=== PATIENT | female | born 1980 | race Caucasian/White ===

== ENCOUNTER 2020-03-15 15:35 | Outpatient (REF) | payer OTHER, SELFPAY ==
--- NOTE | 2020-03-15 13:30 | PAPFT_PTH ---
PATIENT: Linsey Guevara LOC: [facility] U#:[id number] AGE/SX: 39/F ROOM: RE03/15/[address]: Rajwinder Aguilar APRN : 1980 BED: DIS: 03/15/2020 SPEC #: [id number] RECD: 03/16/20 12:57 STATUS: MAE REMackenzie #: [id number] FÉLIX: 03/15/20 13:[address]: Rajwinder Aguilar DEPT: [facility] Cytology RECD BY: Destiny Tierney Tissues: 1 - CX/ENDOCX FOR PAP SMEARS Procedures: PAP THIN PREP/UVM Screening HPV DNA PROBE Comments: [id number]
== END 2020-03-15 15:36 | disposition home or self-care (01) ==
LOC: LBN 15:35
DX: Z12.4 Encounter for screening for malignant neoplasm of cervix (principal); Z11.51 Encounter for screening for human papillomavirus (HPV)
CPT/HCPCS: 88142; 87624

== ENCOUNTER 2020-04-05 02:09 | Outpatient (CLI) | payer OTHER, SELFPAY ==
--- NOTE | 2020-04-05 16:17 | DI.MAMMO_ITS ---
EXAM: MAMMO SCREENING CLINICAL HISTORY: screening,Z12.39 TECHNIQUE: Mammograms were interpreted according to the usual protocol including computer analysis w [employer] CAD system, tomosynthesis and C-view imaging. COMPARISON: Baseline examination. FINDINGS: The breasts are composed of mainly fatty density , Breast Density category A. No suspicious masses or suspicious microcalcifications are seen. No skin thickening or abnormal axillary lymph nodes are seen. There has been no significant change from prior exams. IMPRESSION: BI-RADS Category 1, Negative mammogram Yearly screening mammography is recommended. Breast Density - Category A, fatty density. A negative radiographic report should not delay biopsy if a dominant or clinically suspicious mass is present. Up to ten percent of cancers are not identified on mammography. A negative report may reinforce clinical impression. Adenosis and dense breasts may obscure an underlying neoplasm. False positive reports average 6 to 10%. Patient will receive a letter notifying them of these results.
== END 2020-04-05 02:10 ==
LOC: DI 02:09
DX: Z12.31 Encounter for screening mammogram for malignant neoplasm of breast (principal)
CPT/HCPCS: 77063; 77067

== ENCOUNTER 2020-04-05 03:23 | Outpatient (CLI) | payer OTHER, SELFPAY ==
[2020-04-05 16:42] LABS: Lithium < 0.2 mmol/l (0.6-1.2)
[2020-04-05 16:54] LABS: ALT 56 U/L (14-59); AST 26 U/L (15-37); Alkaline Phosphatase 110 U/L (46-116); Anion Gap 10.1 mmol/L (3-11); BUN 11 mg/dL (7-18); Bilirubin, Total 0.4 mg/dL (0.2-1.0); CO2 25.9 mmol/L (21.0-32.0); CREATININE 0.7 mg/dL (0.55-1.02); Calcium 9.3 mg/dL (8.5-10.1); Calculated LDL 94 mg/dL (<100); Chloride 105 mmol/L (98-107); Cholesterol 163 mg/dL (<200); Glucose 83 mg/dL (74-106); HDL Cholesterol 52 mg/dL (40-60); Potassium 4.3 mmol/L (3.5-5.1); Sodium 141 mmol/L (136-145); TSH (W/Ref FT4) 1.51 uIU/mL (0.36-3.74); Total Protein 6.9 g/dL (6.4-8.2); Triglyceride 85 mg/dL (<150)
== END 2020-04-05 03:24 | disposition home or self-care (01) ==
LOC: LBO 03:23
DX: Z00.00 Encounter for general adult medical examination without abnormal findings (principal); G47.00 Insomnia, unspecified; F39 Unspecified mood [affective] disorder; Z51.81 Encounter for therapeutic drug level monitoring; R53.83 Other fatigue; E66.3 Overweight; Z13.220 Encounter for screening for lipoid disorders
CPT/HCPCS: 36415; 80053; 80061; 80178; 84443

== ENCOUNTER 2020-05-23 03:23 | Outpatient (CLI) | payer OTHER, SELFPAY ==
[2020-05-23 11:40] LABS: Lithium < 0.2 mmol/l (0.6-1.2)
== END 2020-05-23 03:24 | disposition home or self-care (01) ==
LOC: LBO 03:24
DX: F39 Unspecified mood [affective] disorder (principal); Z51.81 Encounter for therapeutic drug level monitoring
CPT/HCPCS: 36415; 80178

== ENCOUNTER 2020-05-31 14:00 | Outpatient (REF) | payer OTHER, SELFPAY ==
[2020-05-31 15:01] LABS: Abs Immature Grans 0.03 10^3/uL (0.0-0.06); Absolute Basophil Count 0.05 10^3/uL (0.0-0.2); Absolute Eosinophil Count 0.23 10^3/uL (0.0-0.7); Absolute Monocyte Count 0.79 10^3/uL (0.1-0.8); Absolute Neutrophil Count 6.32 10^3/uL (1.2-6.7); Basophils % 0.5; Eosinophils % 2.5; HCT 43.8 % (36.0-46.0); HGB 14.3 g/dL (11.2-15.7); Immature Grans % 0.3; Lymphocytes % 20.4; MCHC 32.6 % (32.0-36.0); MCV 85.9 fL (80-95); MPV 10.4 fL (8.0-11.0); Monocytes % 8.5; Neutrophils % 67.8; Nucleated RBC 0 %; Platelet Count 315 10^3/uL (130-400); RDW 12.5 % (11.7-14.6); WBC 9.32 10^3/uL (4.4-10.8)
[2020-05-31 15:12] LABS: ALT 43 U/L (14-59); AST 20 U/L (15-37); Albumin 4.3 g/dL (3.4-5.0); Alkaline Phosphatase 121 U/L (46-116); Anion Gap 10.7 mmol/L (3-11); BUN 15 mg/dL (7-18); Bilirubin, Total 0.4 mg/dL (0.2-1.0); CO2 26.3 mmol/L (21.0-32.0); CREATININE 0.7 mg/dL (0.55-1.02); Calcium 9.3 mg/dL (8.5-10.1); Chloride 105 mmol/L (98-107); Glucose 85 mg/dL (74-106); Potassium 4.4 mmol/L (3.5-5.1); Sodium 142 mmol/L (136-145); Total Protein 7.3 g/dL (6.4-8.2)
== END 2020-05-31 14:01 | disposition home or self-care (01) ==
LOC: LBN 14:00
DX: R10.9 Unspecified abdominal pain (principal)
CPT/HCPCS: 80053; 85025

== ENCOUNTER 2020-08-15 02:15 | Outpatient (CLI) | payer OTHER, SELFPAY ==
[2020-08-15 11:06] LABS: Source Nasal/Nares
[2020-08-15 13:31] LABS: COVID-19 PCR Negative (Negative)
== END 2020-08-15 02:16 | disposition home or self-care (01) ==
LOC: LBO 02:15
PROVIDERS: Visit Provider Surgery
DX: Z20.822 Contact with and (suspected) exposure to COVID-19 (principal); Z01.818 Encounter for other preprocedural examination
CPT/HCPCS: 87635

== ENCOUNTER 2020-08-17 06:13 | Day surgery (SDC) | payer OTHER, SELFPAY ==
--- NOTE | 2020-08-16 22:18 | PDOC.DSDIS_ITS ---
Discharge Plan Disposition Patient Disposition: HOME Condition: Good Discharge Details Reason For Visit: stomach scope Attending Provider: Addis Dupree Primary Care Provider: Rajwinder Aguilar Home Meds and New Rx's Prescriptions: New pantoprazole [Protonix] 40 mg tablet,delayed release (DR/EC) 40 mg PO BID Qty: 60 RF: 12 Continued lamotrigine 200 mg tablet 200 mg PO BID Qty: 90 RF: 3 trazodone 50 mg tablet 50 mg PO QHS PRN (Reason: sleep) Qty: 90 RF: 3 Discontinued pantoprazole [Protonix] 40 mg tablet,delayed release (DR/EC) 40 mg PO DAILY Qty: 30 RF: 12 Discharge Instructions Additional Instructions: DSU EGD Post-Op Instructions Instructions for Everyone who is given Anesthesia: For your safety, please do the following for the next twenty-four (24) hours: *Do Not operate a motor vehicle (car, truck, motorcycle, etc.) *Do Not drink alcoholic beverages or use any recreational drugs for the first 24 hours or while taking pain medications. The medications in your body may have a reaction that can be dangerous. *Do Not make any important decisions or sign any important papers. Findings: Reflux esophatitis -reactive Airway Dx -Sleep Apnea & reflux Follow up: You need to have f/u DZaynab Aguilar- you need to have a sleep study done! You also have moderate reactive airway dx and need to be started on an inhaler regimen. You should consider having Ph probe study done at [facility] to evaluate for nighttime reflux and aspiration. 1. No lifting over 20 pounds or strenuous activity for the first 24 hours after your procedure. After 24 hours there are no restrictions on your activity but you may feel fatigued for a few days. 2. After you arrive home you may have a light meal and return to your normal diet as you can tolerate it without feeling sick to your stomach. 3. You may have a sore throat for the next 24-48hrs. Gargle w/ salt water (1tsp salt in 4oz warm water) 5-6 times a day. Call the office at [phone] (Office) or [phone] (Hospital) right away if you notice any of the following: a.Vomiting of blood or ?coffee ground stools?. b.Rectal bleeding 1Tbsp, blood clots or continuous bleeding. c.Severe belly (abdominal) pain. d.A hard distended belly (abdomen) and an inability to pass gas. 4. Please don?t expect to have a normal BM (bowel movement) for 2-3 days after your procedure. 5. If there are questions regarding the findings of your procedure, please contact your doctor 6. If you are unable to contact your doctor with a problem, contact the hospital at [phone]. 7. Continue all your regular medications unless directed otherwise. I understand the above instructions and have no questions. Signature of Patient or Adult Escort Name of Responsible Adult Escort Signature of Nurse Date/Time Activity:: see above Diet:: see above Discharge Orders Discharge Orders: Discharge Order (Routine); Ordered 08/16/20 Ordered By: Addis Dupree DS: Diagnosis Discharge Diagnosis (1) GERD (gastroesophageal reflux disease): Status: Chronic (2) Abdominal pain: Status: Acute (3) History of tobacco use: Status: Acute (4) Cholecystectomy: Status: None (5) Mild persistent reactive airway disease with acute exacerbation: Status: Acute (6) Sleep apnea, obstructive: Status: Chronic
--- NOTE | 2020-08-16 22:19 | ENDO_ITS ---
Date of service: 08/17/20 Time of Service: 07:30 Endoscopy Report DATE OF PROCEDURE: 08/17/20 PRE-OP DIAGNOSIS: GERD/esophagtisi POST-OP DIAGNOSIS: same SURGEON: Addis Dupree ANESTHESIA TYPE: General:No Airway ESTIMATED BLOOD LOSS: 1 PATHOLOGY: other COMPLICATIONS: None DISPOSITION: same day PROCEDURE DESCRIPTION: After informed consent was obtained the patient was take to the procedure room and placed in a supine position. Monitors were applied and a time out was done. The patients name, date of , procedure type, allergies to medications and metal in their body was reviewed. A bite block was placed and the patient was sedated. Once sedated and comfortable the gastroscope was advanced through the oropharynx which was grossly normal into the esophagus. The Patient has very reactive airway. She did not tolerate the procedure/sedation well. As I am inserting the scope, I can see that she is refluxing material from her stomach into distal and mid portions of the esophagus. The proximal and mid-esophagus were nl. In the distal esophagus there was esophagitis -mild. She had some mild erosions noted at the esophagus. She had appears to be developing a Schatzki's ring and has a very minute sliding-type hiatal hernia. There are no diverticula or strictures. The scope was advanced into the stomach and through the pylorus into the 3rd portion of the duodenum. The duodenum was noted to be nl. Biopsies were done -all specimens are retrieved and no bleeding is noted. The scope was retracted back into the stomach and biopsies were done to rule out H. pylori. There were no ulcers/duodenitis. The scope was retroflexed. The cardia and fundus were noted to be normal. The scope was retracted back into the esophagus and biopsies were done of the GE junction to rule out Mckeon's. The Z line was irregular. Pt had persistent coughing throughout the procedure. Pt also exhibited signs of sleep apea as well, as reactive airway Dx & NICKOLAS w/ her anesthetic. There is a high possibility that she is refluxing/aspirating during nighttime. The scope was removed and the patient was woken up and taken back to [facility] in stable condition.
[2020-08-17 06:23] VITALS: BP 124/65; PULSE 69; RESP 18; TEMP 36.2; O2SAT 96
[2020-08-17] MEDS: Lactated Ringers 1,000 ML 80 ML IV (06:45)
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
[2020-08-17 07:12] VITALS: BMI 39.4
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
--- NOTE | 2020-08-17 08:00 | BOWEL_PTH ---
PATIENT: Linsey Guevara LOC: [facility] U#:[id number] AGE/SX: 39/F ROOM: RE08/17/[address]: Addis Dupree : 1980 BED: DIS: 08/17/2020 SPEC #: [id number] RECD: 08/17/20 09:57 STATUS: MAE RE #: [id number] FÉLIX: 08/17/20 08:[address]: Addis Dupree DEPT: Surgical Specimen RECD BY: Maryam Davis ENTERED: 08/17/20 10:01 SP TYPE: Bowel OTHR DR: Rajwinder Aguilar APRN Tissues: 1 - BIOPSY BOWEL 2 - BIOPSY BOWEL 3 - STOMACH BIOPSY 4 - STOMACH BIOPSY 5 - ESOPHAGUS BIOPSY 6 - ESOPHAGUS BIOPSY Procedures: GROSS AND MICRO LEVEL 4 Comments: [id number]
[2020-08-17 08:20] VITALS: BP 132/56; PULSE 99; RESP 22; TEMP 36.1; O2SAT 96
--- NOTE | 2020-08-17 08:20 | W.ANESPOSTOP ---
Postoperative Evaluation Date, Time and Location Date Performed: 08/17/20 Time Performed: 08:22 Patient Location: Day Surgery Unit Vital Signs Most Recent Imported Vital Signs: Most Recent Vital Signs Temp Pulse Resp BP Pulse Ox 36.2 C L 69 18 124/65 96 08/17/20 06:23 08/17/20 06:23 08/17/20 06:23 08/17/20 06:23 08/17/20 06:23 Most Recent Manually Entered Vital Signs: Adult Blood Pressure: 132/56 Heart Rate: 99 Respirations: 20 Oxygen Saturation (%): 97 Temperature (C): 36.1 C Pain Score (0-10 Scale): 0 Pain Score Most Recent Pain Score: Most Recent Pain Score Pain Level 4 0 08/17/20 06:23 Assessment Mental Status: Awake (Alert & Oriented to Patient Baseline) Airway and Respiratory Function: Patent airway with normal (patient baseline) respiratory exam and Abnormal Respiratory exam (See explanation) (Coughing) Cardiovascular Function: Hemodynamically Stable Hydration Status: Adequately Hydrated Nausea & Vomiting: No Nausea or Vomiting Pain: Pt. Denies Any Pain Peripheral Nerve Block: Patient did not receive a nerve block
[2020-08-17 08:26] VITALS: BP 132/56; PULSE 99; RESP 20; TEMPC 36.1; O2SAT 97
[2020-08-17] MEDS: Albuterol 2.5 MG/3 ML INH SOLN VIAL UPD (08:35)
[2020-08-17 08:36] VITALS: PULSE 89; RESP 18; RESP 5; O2SAT 99
[2020-08-17 08:52] VITALS: BP 111/56; PULSE 87; RESP 18; TEMP 36.5; O2SAT 96
== END 2020-08-17 09:30 | disposition home or self-care (01) ==
PROVIDERS: Visit Provider Surgery
PROC: 0DJ68ZZ Inspection of Stomach, Via Natural or Artificial Opening Endoscopic (ICD-10-PCS; CPT 43235; principal; 2020-08-17 07:30)
DX: K22.2 Esophageal obstruction (principal); K21.00 Gastro-esophageal reflux disease with esophagitis, without bleeding
CPT/HCPCS: 43239; 81025; 88305; 94640; J2704; J7613

== ENCOUNTER 2020-10-03 03:08 | Outpatient (CLI) | payer OTHER, SELFPAY ==
[2020-10-03] MEDS: Albuterol HFA 18 GM 200 PUFF INH IH (08:43)
[2020-10-03] MEDS: Inhaler, Assist Device 1 EACH MC (08:43)
--- NOTE | 2020-10-03 14:36 | W.PFT ---
Date of service: 10/03/20 Time of Service: 08:07 Pulmonary Function Test Result Requesting Provider Rajwinder Aguilar Interpretation Spirometry: There is no airflow limitation. There is a significant bronchodilator response (13% and 360cc increase in FEV1). Impression Normal spirometry with a positive bronchodilator response. Clinical Correlation therefore is recommended.
== END 2020-10-03 03:09 | disposition home or self-care (01) ==
LOC: RT 03:08
DX: J45.30 Mild persistent asthma, uncomplicated (principal)
CPT/HCPCS: 94060

== ENCOUNTER 2021-05-30 13:27 | Outpatient (REF) | payer OTHER, SELFPAY ==
--- NOTE | 2021-05-30 13:00 | PAPFT_PTH ---
PATIENT: Linsey Guevara LOC: [facility] U#:[id number] AGE/SX: 40/F ROOM: RE05/30/[address]: Woo Dumont NP : 1980 BED: DIS: 05/30/2021 SPEC #: [id number] RECD: 05/30/21 17:28 STATUS: MAE WILLIAM #: [id number] FÉLIX: 05/30/21 13:[address]: Woo Dumont DEPT: [facility] Cytology RECD BY: Destiny Tierney Tissues: 1 - CX/ENDOCX FOR PAP SMEARS Procedures: PAP THIN PREP/UVM Screening HPV DNA PROBE Comments: [id number]
== END 2021-05-30 13:28 | disposition home or self-care (01) ==
LOC: LBN 13:27
PROVIDERS: PCP Nurse Practitioner Family; Visit Provider Nurse Practitioner Family
DX: Z12.4 Encounter for screening for malignant neoplasm of cervix (principal); Z11.51 Encounter for screening for human papillomavirus (HPV)
CPT/HCPCS: 88142; 87624

== ENCOUNTER → 2021-06-13 02:48 | Outpatient (CLI) | payer OTHER, SELFPAY ==
--- NOTE | 2021-06-13 07:45 | DI.MAMMO_ITS ---
Exam(s) MAMMO SCREENING EXAM: MAMMO SCREENING CLINICAL HISTORY: screening,z12.39 TECHNIQUE: Mammograms were interpreted according to the usual protocol including computer analysis w [email or web address] CAD system, tomosynthesis and C-view imaging. COMPARISON: FINDINGS: The breasts are of moderate density with fairly symmetrical distribution of fibroglandular tissue. N o dominant mass or clumped microcalcification is identified in either breast. The current examinatio n is compared with the previous examination of March 2020 and there has been no gross interval stacia nge in appearance in comparison with the prior study. IMPRESSION: No specific evidence of malignancy at this time. Routine screening examinations are suggested at yea rly intervals in this age group according to the ACR guidelines. BI-RADS Category 1 - Negative Breast Density - Category B - Scattered areas of fibroglandular density
== END ==
PROVIDERS: PCP Nurse Practitioner Family; Visit Provider Nurse Practitioner Family
DX: Z12.31 Encounter for screening mammogram for malignant neoplasm of breast (principal)
CPT/HCPCS: 77063; 77067

== ENCOUNTER 2021-07-04 09:19 | Outpatient (CLI) | payer OTHER, SELFPAY ==
--- NOTE | 2021-07-04 09:15 | RT.EKG_ITS ---
APPROVED REPORT Exam: Resting ECG Reason for Exam: baseline Patient Location: O HR:61 bpm ECG Measurements Heart Rate 61 AXIS IA 170 P 42 QRSd 95 QRS 56 QT 398 T 33 QTc 403 Conclusion Sinus rhythm...normal P axis, V-rate 60- 99 Normal Electrocardiogram
== END 2021-07-04 09:20 | disposition home or self-care (01) ==
LOC: DI.CM 09:21
PROVIDERS: PCP Nurse Practitioner Family; Visit Provider Nurse Practitioner Family
DX: Z13.6 Encounter for screening for cardiovascular disorders (principal)
CPT/HCPCS: 93010

== ENCOUNTER 2021-08-02 12:05 | Outpatient (CLI) | payer OTHER, SELFPAY ==
--- NOTE | 2021-08-02 12:21 | DI.RAD_ITS ---
Exam(s) XR SHOULDER RT COMPLETE 2+V EXAM: XR SHOULDER RT COMPLETE 2+V CLINICAL HISTORY: recent fall, pain in rt shoulder-M25.511. TECHNIQUE: 2D digital imaging was performed of the right shoulder. Five images were obtained. AP, Grashey, Y-view and axillary views were obtained. COMPARISON: No exams were available for comparison FINDINGS: BONES: No acute fracture is present. No bony destructive lesion is seen. JOINTS: No dislocation present. There are degenerative changes seen at both the glenohumeral and acro mioclavicular joints. SOFT TISSUE: Normal. IMPRESSION: No acute fracture or dislocation. DATA REPOSITORY: RADIATION DOSE DELIVERED:
== END 2021-08-02 12:25 ==
LOC: DI 12:07
PROVIDERS: PCP Nurse Practitioner Family; Visit Provider Family Medicine
DX: M25.511 Pain in right shoulder (principal); Z91.81 History of falling
CPT/HCPCS: 73030

== ENCOUNTER 2021-11-05 15:52 | Outpatient (CLI) | payer OTHER, SELFPAY ==
[2021-11-05 14:56] LABS: ESR 8 mm/hr (0-20)
[2021-11-05 14:57] LABS: Abs Immature Grans 0.01 10^3/uL (0.0-0.06); Absolute Basophil Count 0.04 10^3/uL (0.0-0.2); Absolute Eosinophil Count 0.66 10^3/uL (0.0-0.7); Absolute Lymphocyte Count 1.28 10^3/uL (1.2-3.4); Absolute Monocyte Count 1.05 10^3/uL (0.1-0.8); Absolute Neutrophil Count 3.11 10^3/uL (1.2-6.7); Basophils % 0.7; Eosinophils % 10.7; HCT 42.1 % (36.0-46.0); HGB 13.8 g/dL (11.2-15.7); Immature Grans % 0.2; Lymphocytes % 20.8; MCH 27.6 pg (27.0-33.0); MCHC 32.8 % (32.0-36.0); MCV 84 fL (80-95); MPV 9.8 fL (8.0-11.0); Monocytes % 17.1; Neutrophils % 50.5; Platelet Count 272 10^3/uL (130-400); RDW-SD 40.1 fL; WBC 6.15 10^3/uL (4.4-10.8)
[2021-11-05 15:07] LABS: Hemoglobin A1C 5.5 % (<5.7)
[2021-11-05 15:25] LABS: ALT 35 U/L (14-59); AST 17 U/L (15-37); Albumin 4.4 g/dL (3.4-5.0); Alkaline Phosphatase 92 U/L (46-116); Anion Gap 7.7 mmol/L (3-11); BUN 19 mg/dL (7-18); Bilirubin, Total 0.3 mg/dL (0.2-1.0); C-Reactive Protein 1.35 mg/dL (0.0-0.3); CO2 28.3 mmol/L (21.0-32.0); CREATININE 0.7 mg/dL (0.55-1.02); Calcium 9.2 mg/dL (8.5-10.1); Chloride 106 mmol/L (98-107); Estimated GFR 110.67 (mL/min/1.73m2); Glucose 90 mg/dL (74-106); Potassium 3.9 mmol/L (3.5-5.1); Sodium 142 mmol/L (136-145); Total Protein 7.5 g/dL (6.4-8.2)
[2021-11-05 16:10] LABS: Calculated LDL 81 mg/dL (<100); Cholesterol 158 mg/dL (<200); HDL Cholesterol 63 mg/dL (40-60); Triglyceride 71 mg/dL (<150)
== END 2021-11-05 15:53 | disposition home or self-care (01) ==
LOC: LBO 15:55
PROVIDERS: PCP Nurse Practitioner Family; Visit Provider Family Medicine
DX: R73.01 Impaired fasting glucose (principal); H46.8 Other optic neuritis; F41.8 Other specified anxiety disorders; R53.83 Other fatigue; Z13.1 Encounter for screening for diabetes mellitus; Z13.6 Encounter for screening for cardiovascular disorders; Z00.00 Encounter for general adult medical examination without abnormal findings
CPT/HCPCS: 36415; 80053; 80061; 85652; 83036; 85025; 86140

== ENCOUNTER 2021-11-08 00:41 | Outpatient (CLI) | payer OTHER, SELFPAY ==
--- NOTE | 2021-11-08 06:45 | DI.MRI_ITS ---
Exam(s) MR BRAIN ORBIT FACE NECK WO/W EXAM: MR BRAIN ORBIT FACE NECK WO/W CLINICAL HISTORY: left optic neuritis,h46.9 TECHNIQUE: Multiplanar multisequence MRI of the brain was performed. Post contrast imaging was also obtained, with T1 weighted axial and coronal imaging and multi planar T1 MP rage imaging. COMPARISON: No exams were available for comparison FINDINGS: The ventricular system is normal in appearance. There are multiple areas of abnormal signal, predominantly in periventricular white matter but also i n subcortical white matter. The most prominent focus of abnormal signal lies adjacent to the frontal horn of the right lateral ventricle . On high-resolution T2 weighted images, there is suggestion increased signal in the left optic nerve i n its posterior extent. Question slight increased signal also present in the portion of the left opt ic nerve directly adjacent to the globe . Following contrast administration, there is question of minimal enhancement in left frontal white mat ter corresponding to a focus of abnormal signal seen FLAIR imaging. There is also a probable area of increased signal on post contrast imaging in the posterior intra orbital portion of the left optic n erve. Diffusion weighted imaging shows no evidence of infarction. Susceptibility weighted imaging shows no evidence of intracranial hemorrhage. There is normal flow void in the bill moore's slough of [place] vasculature. There is no evidence of a mass lesion or enhancing lesion in the brain. IMPRESSION: White matter signal abnormalities as described above including suggestion of small right frontal enha ncing lesion. Findings are also present suggesting abnormal signal and enhancement of the left optic nerve, in the posterior portion of the intra orbital portion of nerve. The findings as described ar e suspicious for demyelinating process, please correlate clinically.. DATA REPOSITORY:
[2021-11-08] MEDS: Gadoterate meglumine 20 ML SYRINGE IVP (08:46)
[2021-11-08] MEDS: Normal Saline Flush 10 ML SYR IVP (08:47)
== END 2021-11-08 01:01 ==
LOC: DI 00:41
PROVIDERS: PCP Nurse Practitioner Family; Visit Provider Family Medicine
DX: H46.9 Unspecified optic neuritis (principal)
CPT/HCPCS: 70553; 70543

== ENCOUNTER 2021-11-11 03:07 | Outpatient (RCR) | payer OTHER, SELFPAY ==
[2021-11-09] MEDS: Normal Saline Flush 10 ML SYR IVP (10:42)
[2021-11-10] MEDS: Normal Saline Flush 10 ML SYR IVP (10:41)
[2021-11-11] MEDS: Normal Saline Flush 10 ML SYR IVP (10:47)
== END 2021-12-09 23:59 | disposition home or self-care (01) ==
LOC: INF 03:07
PROVIDERS: PCP Nurse Practitioner Family; Visit Provider Family Medicine
DX: H46.9 Unspecified optic neuritis (principal)
CPT/HCPCS: 96365; J2930

== ENCOUNTER 2021-12-10 02:41 | Outpatient (CLI) | payer OTHER, SELFPAY ==
[2021-12-10] MEDS: Gadoterate meglumine 20 ML SYRINGE IVP (09:10)
[2021-12-10] MEDS: Normal Saline Flush 10 ML SYR IVP (09:11)
--- NOTE | 2021-12-10 09:40 | DI.MRI_ITS ---
Exam(s) MR THORACIC SPINE WO/W EXAM: MR THORACIC SPINE WO/W CLINICAL HISTORY: ?MS,LT OPTIC NEURITIS,H46.9 TECHNIQUE: Multiplanar multisequence MRI of the thoracic spine was performed without with intravenou s contrast. Contrast injected was 20 mL Dotarem. COMPARISON: No exams were available for comparison FINDINGS: OSSEOUS: There are no acute appearing thoracic vertebral fractures. No listhesis. There is a small b enign intraosseous hemangioma noted in the left side of the L1 vertebral body. There are no lytic os seous lesions evident. THORACIC SPINAL CORD: There is no abnormal signal in the cervical spinal cord and no evidence of foca l cord atrophy nor focal cord swelling. There is no evidence of syringomyelia nor significant spinal cord dysraphism. There is no evidence of mass at the conus medullaris. The position of the conus me dullaris is at T12-L1 level. POSTCONTRAST: No abnormal enhancement within the cord, thecal sac, nor epidural space. No abnormal i ntraosseous enhancement. SIGNIFICANT INDIVIDUAL LEVEL FINDINGS: T6-7: There is a small posterolateral left disc protrusion which indents the thecal sac. Central can al dimensions are lower normal. No significant foraminal stenosis. T7-8: Slightly larger posterolateral left disc protrusion which indents the thecal sac and contacts t he spinal cord. Canal dimensions lower normal. No foraminal stenosis on either side at this level. T8-9: Mild annular bulging. No prominent disc herniation. Central canal dimensions within normal li mits. No foraminal stenosis. PARASPINAL TISSUES: No significant masses nor fluid collections evident. IMPRESSION: 1. No evidence of fracture, listhesis, nor ominous osseous lesions. A small benign hemangioma is not ed in the left side of L1 vertebral body. 2. No abnormal signal in the thoracic spinal cord. No evidence of demyelinating plaque in the cord. No syringomyelia. No dysraphism. No mass at the level of the conus nor elsewhere in the thoracic s aminata cord. 3. Small posterolateral left disc protrusions at T6-7 and T7-8, slightly larger at T7-8 level. DATA REPOSITORY:
--- NOTE | 2021-12-10 09:40 | DI.MRI_ITS ---
Exam(s) MR CERVICAL SPINE WO/W EXAM: MR CERVICAL SPINE WO/W CLINICAL HISTORY: ?MS TECHNIQUE: Multiplanar multisequence MRI of the cervical spine was performed without and with intrav enous contrast. Contrast infused was 20 mL Dotarem COMPARISON: MR MR BRAIN ORBIT FACE NECK WO/W from 11/08/2021 FINDINGS: CERVICOMEDULLARY JUNCTION: Intact with no evidence of cerebellar tonsillar ectopia. No obvious abnor mality of the odontoid process. No evidence of Chiari 1 malformation. CERVICAL SPINAL CORD: There is no abnormal signal in the cervical spinal cord and no evidence of foca l cord atrophy nor focal cord swelling. Is no abnormal enhancement within the cervical spinal cord. There is no evidence of syringomyelia. OSSEOUS:There are no cervical fractures evident. No significant osseous lesions in the cervical vert ebrae. The normal cervical curvature is maintained. INDIVIDUAL LEVELS: C2-3: No disc herniation nor central canal stenosis. No foraminal stenosis. No facet arthropathy. C3-4: There is a small posterolateral right disc protrusion which extends posteriorly 2 millimeters a nd is approximately 6 millimeters wide.No facet arthropathy. No foraminal stenosis. C4-5: No disc herniation nor central canal stenosis.No facet arthropathy. No foraminal stenosis C5-6: Normal disc height and signal. No disc herniation or canal stenosis. No foraminal stenosis. No facet arthropathy. C6-7: Normal disc height and signal. No disc herniation. No canal stenosis. No foraminal stenosis. No facet arthropathy. C7-T1: No disc herniation nor central canal stenosis. No facet arthropathy.No foraminal stenosis. IMPRESSION: 1. There is no evidence of demyelinating disease in the cervical spinal cord. No abnormal signal in the cord nor abnormal cervical spinal cord enhancement. 2. There is a small posterolateral right disc protrusion at C3-4 level, as described above. 3. There is no significant facet arthropathy in the cervical spinal column. DATA REPOSITORY:
== END 2021-12-10 03:01 ==
LOC: DI 02:41
PROVIDERS: PCP Nurse Practitioner Family; Visit Provider Psychiatry & Neurology Neurology
DX: D18.09 Hemangioma of other sites; M51.24 Other intervertebral disc displacement, thoracic region; H46.8 Other optic neuritis
CPT/HCPCS: 72156; 72157

== ENCOUNTER 2021-12-10 03:56 | Outpatient (CLI) | payer OTHER, SELFPAY ==
[2021-12-10 11:06] LABS: Folate 12.5 ng/mL (8.6-20.0); Vitamin B12 475 pg/mL (193-986)
[2021-12-10 13:46] LABS: Vitamin D 25 Total 18.5 ng/mL (30-100)
[2021-12-10 20:44] LABS: HBs Antibody, Qual Negative (See Note); HBs Antibody, Quant <3.1 mIU/mL (See Note); Hepatitis B Core Antibody Negative (Negative); Hepatitis B surface Ag Negative (Negative); Hepatitis C Ab w Rflx HCV PCR Negative (Negative)
[2021-12-10 20:50] LABS: HIV-1/2 Ag & Ab Screen Negative (Negative)
[2021-12-11 09:33] LABS: IgA 132 mg/dL (85-499); IgG 400 mg/dL (610-1,616); IgM 88 mg/dL (35-242)
[2021-12-11 11:15] LABS: Lyme Ab w Rflx to Lyme Confirm Negative (Negative); Varicella IgG Antibody Positive (See Note)
[2021-12-11 14:09] LABS: Albumin 64.6 % (55.8-66.1); Albumin g/dL 3.7 g/dL (3.6-5.2); Total Protein 5.8 g/dL (6.3-8.2)
[2021-12-11 15:17] LABS: ANA Interpretation Negative (Negative)
[2021-12-11 15:18] LABS: CD19 19 % (6-24); CD20 19 % (6-24)
[2021-12-13 01:04] LABS: Anaplasma phagocytophilum Negative (Negative); B. miyamotoi PCR Negative (Negative); Babesia divergens/MO-1 Negative (Negative); Babesia duncani Negative (Negative); Babesia microti Negative (Negative); Ehrlichia chaffeensis Negative (Negative); Ehrlichia ewingii/canis Negative (Negative); Ehrlichia muris eauclairensis Negative (Negative)
[2021-12-13 15:00] LABS: MOG FACS, S Negative (Negative)
[2021-12-14 23:38] LABS: NMO/AQP4 IgG FACS Negative (Negative)
== END 2021-12-10 03:57 | disposition home or self-care (01) ==
LOC: LBO 03:56
PROVIDERS: PCP Nurse Practitioner Family; Visit Provider Psychiatry & Neurology Neurology
DX: G35 Multiple sclerosis (principal); H46.9 Unspecified optic neuritis; G62.9 Polyneuropathy, unspecified
CPT/HCPCS: 36415; 82306; 82784; 86255; 86704; 86706; 86787; 86803; 87340; 87389; 87798; 88184; 88185; 82607; 82746; 84165; 86038; 86618

== ENCOUNTER 2022-04-17 16:25 | Emergency (ER) | payer OTHER, SELFPAY ==
[2022-04-17 16:36] VITALS: BP 119/84; PULSE 82; RESP 18; TEMP 37.3; O2SAT 97
[2022-04-17 18:59] VITALS: RESP 19
[2022-04-17 19:32] LABS: Abs Immature Grans 0.03 10^3/uL (0.0-0.06); Absolute Basophil Count 0.08 10^3/uL (0.0-0.2); Absolute Eosinophil Count 0.39 10^3/uL (0.0-0.7); Absolute Lymphocyte Count 2.87 10^3/uL (1.2-3.4); Absolute Monocyte Count 1.22 10^3/uL (0.1-0.8); Absolute Neutrophil Count 8.57 10^3/uL (1.2-6.7); Basophils % 0.6; HCT 42.8 % (36.0-46.0); HGB 14.5 g/dL (11.2-15.7); Immature Grans % 0.2; Lymphocytes % 21.8; MCH 28.4 pg (27.0-33.0); MCHC 33.9 % (32.0-36.0); MCV 84 fL (80-95); MPV 10.1 fL (8.0-11.0); Monocytes % 9.3; Neutrophils % 65.1; Platelet Count 343 10^3/uL (130-400); RDW 13.1 % (11.7-14.6); RDW-SD 39.3 fL; WBC 13.16 10^3/uL (4.4-10.8)
[2022-04-17 19:35] LABS: Bilirubin Negative (Negative); Blood Negative (Negative); Clarity Clear (Clear); Glucose Negative (Negative); Ketones Negative (Negative); Leukocyte Esterase Negative (Negative); Nitrite Negative (Negative); Specific Gravity >= 1.030 (1.005-1.025); Urobilinogen 0.2 mg/dL (Up to 0.2); pH 5.5 (5-8)
[2022-04-17 19:48] LABS: ALT 50 U/L (14-59); AST 16 U/L (15-37); Albumin 4.1 g/dL (3.4-5.0); Alkaline Phosphatase 103 U/L (46-116); Anion Gap 10.9 mmol/L (3-11); BUN 13 mg/dL (7-18); Bilirubin, Total 0.2 mg/dL (0.2-1.0); CO2 25.1 mmol/L (21.0-32.0); CREATININE 0.7 mg/dL (0.55-1.02); Calcium 9.4 mg/dL (8.5-10.1); Chloride 107 mmol/L (98-107); Estimated GFR 109.98 (mL/min/1.73m2); Glucose 94 mg/dL (74-106); Magnesium 1.9 mg/dL (1.8-2.4); Potassium 4.2 mmol/L (3.5-5.1); Sodium 143 mmol/L (136-145); Total Protein 6.9 g/dL (6.4-8.2)
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
[2022-04-17 21:57] VITALS: BP 129/66; PULSE 87; RESP 16; TEMP 37.3; O2SAT 96
== END 2022-04-17 22:10 | disposition home or self-care (01) ==
PROVIDERS: Emergency Provider Nurse Practitioner Family; PCP Nurse Practitioner Family
DX: R20.2 Paresthesia of skin (principal); H46.8 Other optic neuritis; D72.829 Elevated white blood cell count, unspecified
CPT/HCPCS: 80053; 81025; 96365; 99284; 81003; 83735; 85025; J2930

== ENCOUNTER 2022-04-21 01:58 | Outpatient (CLI) | payer OTHER, SELFPAY ==
--- NOTE | 2022-04-21 07:30 | DI.MRI_ITS ---
Exam(s) MR THORACIC SPINE WO/W EXAM: MR THORACIC SPINE WO/W CLINICAL HISTORY: ? MS, bilat paresthesias,r20.2. TECHNIQUE: Multiplanar multisequence MRI of the Thoracic spine was performed. Precontrast images performed 21 April 2022. Postcontrast images performed 22 April 2022 due to length of the exam. CONTRAST MATERIAL: IV Contrast: 20 mL of Dotarem contrast administered. COMPARISON: MR MR THORACIC SPINE WO/W from 12/10/2021 FINDINGS: Bones: The vertebral body heights are well maintained. Alignment is satisfactory. The signal characte ristics are unremarkable. Small hemangioma L1. Cord: The thoracic cord is normal size and signal intensity. No intrinsic cord lesion is present. Discs: Stable small left paracentral disc protrusions at T6-7 and T7-8. Stable mild annular bulging a t T8-9. No central canal stenosis or neural foraminal narrowing. Soft tissues: Normal. There is no evidence of suspicious enhancement. IMPRESSION: Stable mild degenerative disc changes mid thoracic level. Normal cord signal. DATA REPOSITORY:
--- NOTE | 2022-04-21 07:30 | DI.MRI_ITS ---
Exam(s) MR BRAIN WO/W EXAM: MR BRAIN WO/W CLINICAL HISTORY: ? MS,bilat paresthesias, r20.2. TECHNIQUE: Multiplanar multisequence MRI of the brain was performed. The exam was performed over 2 days due to length of study. CONTRAST MATERIAL: IV Contrast: 20 ML of Dotarem contrast administered. COMPARISON: MR MR BRAIN ORBIT FACE NECK WO/W from 11/08/2021 FINDINGS: VENTRICLES AND EXTRA AXIAL SPACES: Normal in size and morphology for the patient's age. HEMORRHAGE: None. CEREBRAL PARENCHYMA: New focus of abnormal high signal in the left posterior frontal lobe measuring 9 millimeters in greatest dimension. No associated enhancement. New 4 millimeter lesion seen in the left parietal lobe posterior to the level of the lateral ventricle. This lesion does show enhancemen t. Previously noted enhancing lesion in the right frontal lobe no longer identified. No space-occup ambrosio lesion identified. MIDLINE SHIFT: None. BRAINSTEM/CEREBELLUM: New lesion seen left cerebellar peduncle, roughly 4 millimeters with no associa stefani enhancement. CALVARIUM: Normal. VISUALIZED PARANASAL SINUSES/MASTOIDS: Clear. OTHER FINDINGS: None. IMPRESSION: Three new lesions identified, including a 4 millimeter left parietal lesion with enhancement. DATA REPOSITORY:
--- NOTE | 2022-04-21 07:30 | DI.MRI_ITS ---
Exam(s) MR CERVICAL SPINE WO/W EXAM: MR CERVICAL SPINE WO/W CLINICAL HISTORY: ? MS,paresthesia bilat legs,r20.2 TECHNIQUE: Multiplanar multisequence MRI of the cervical spine was performed without intravenous con trast. April 21 2022 Pre and post contrast T1 axial and sagittal sequences were performed. 20 mL Dotarem. The contrast e nhanced images were performed the following day, 22 April 2022, due to long length of scan. COMPARISON: MR MR CERVICAL SPINE WO/W from 12/10/2021 FINDINGS: Exam is somewhat limited by motion. BONES: Vertebral body heights are maintained. Alignment is normal. Bone marrow signal intensity is wi thin normal limits. CERVICAL CORD: Craniovertebral junction is unremarkable. There is abnormal high signal on T2 and STI R images within the upper cervical cord posterior to the C2 level measuring roughly 2 cm in length. The lesion is eccentric toward the right and is slightly expansile. There is no associated enhanceme nt. SOFT TISSUES: Unremarkable. C2-3: No disc herniation or bulge is identified. No evidence of neural foraminal narrowing. No signi ficant central canal stenosis C3-4: Stable small right paracentral disc protrusion. No evidence of neural foraminal narrowing. No significant central canal stenosis C4-5: Small small endplate osteophytes projecting toward the right. No evidence of neural foraminal narrowing. No significant central canal stenosis C5-6: No disc herniation or bulge is identified. No evidence of neural foraminal narrowing. No signif icant central canal stenosis C6-7: No disc herniation or bulge is identified. No evidence of neural foraminal narrowing. No signif icant central canal stenosis C7-T1: No disc herniation or bulge is identified. No evidence of neural foraminal narrowing. No signi ficant central canal stenosis IMPRESSION: New area of abnormal high signal in the cervical cord at the C2 level without associated enhancement. Findings consistent with MS. DATA REPOSITORY:
[2022-04-22] MEDS: Normal Saline Flush 10 ML SYR IVP (11:41)
[2022-04-22] MEDS: Gadoterate meglumine 20 ML VIAL IVP (11:42)
== END 2022-04-21 02:18 ==
PROVIDERS: PCP Nurse Practitioner Family; Visit Provider Nurse Practitioner Family
DX: R20.2 Paresthesia of skin (principal)
CPT/HCPCS: 70553; 72156; 72157

== ENCOUNTER 2022-04-28 03:38 | Outpatient (RCR) | payer OTHER, SELFPAY ==
[2022-04-24] MEDS: Normal Saline Flush 10 ML SYR IVP (07:54)
[2022-04-25] MEDS: Normal Saline Flush 10 ML SYR IVP (07:46)
[2022-04-25 13:43] LABS: IgA 141 mg/dL (85-499); IgG 466 mg/dL (610-1616); IgM 109 mg/dL (35-242)
[2022-04-26] MEDS: Normal Saline Flush 10 ML SYR IVP (09:16)
[2022-04-27] MEDS: Normal Saline Flush 10 ML SYR IVP (09:23)
[2022-04-28] MEDS: Normal Saline Flush 10 ML SYR IVP (08:12)
== END 2022-05-09 23:59 | disposition home or self-care (01) ==
LOC: INF 03:38
PROVIDERS: PCP Nurse Practitioner Family; Visit Provider Psychiatry & Neurology Neurology
DX: G35 Multiple sclerosis (principal)
CPT/HCPCS: 36415; 82784; 96365; 82787; J2930

== ENCOUNTER 2022-05-30 01:13 | Outpatient (RCR) | payer OTHER, SELFPAY ==
[2022-05-26] MEDS: Normal Saline Flush 10 ML SYR IVP (08:16)
[2022-05-27] MEDS: Normal Saline Flush 10 ML SYR IVP (08:05)
[2022-05-28] MEDS: Normal Saline Flush 10 ML SYR IVP (08:01)
[2022-05-29] MEDS: Normal Saline Flush 10 ML SYR IVP (08:13)
[2022-05-30] MEDS: Normal Saline Flush 10 ML SYR IVP (07:33)
== END 2022-06-08 23:59 | disposition home or self-care (01) ==
LOC: INF 01:13
PROVIDERS: PCP Nurse Practitioner Family; Visit Provider Psychiatry & Neurology Neurology
DX: G35 Multiple sclerosis (principal)
CPT/HCPCS: 96365; J2930

== ENCOUNTER 2022-08-13 02:17 | Outpatient (RCR) | payer OTHER, SELFPAY ==
[2022-08-10] MEDS: Normal Saline Flush 10 ML SYR IVP (18:48)
--- NOTE | 2022-08-10 19:07 | NUR.NOTE ---
Nursing Note: Pt arrived for scheduled IV infusion. Pt advised that she has pre-medications for potential reaction. Pt states she received this medication before and does not need to premedicate. IV started and infusion administered and completed without complications.
[2022-08-13] MEDS: Normal Saline Flush 10 ML SYR IVP (07:58)
== END 2022-09-08 23:59 | disposition home or self-care (01) ==
LOC: INF 02:17
PROVIDERS: PCP Nurse Practitioner Family; Visit Provider Nurse Practitioner Acute Care
DX: G35 Multiple sclerosis (principal)
CPT/HCPCS: 96365; J2930

== ENCOUNTER → 2023-04-28 03:19 | Outpatient (CLI) | payer OTHER, SELFPAY ==
--- NOTE | 2023-04-28 | DI.MRI_ITS ---
Exam(s) MR BRAIN WO/W EXAM: MR BRAIN WO/W CLINICAL HISTORY: Multiple sclerosis, G35 TECHNIQUE: Multiplanar multisequence MRI of the brain was performed. Both noninfused and contrast i nfused sequences were performed. IV Contrast injected was 19 cc Dotarem. COMPARISON: MR MR BRAIN WO/W from 04/21/2022 FINDINGS: CEREBRAL PARENCHYMA: The previously described foci of white matter signal abnormality are stable with the exception of dec reased in size of the lesion in the superior left side of the corpus callosum and absence of enhancem ent in this lesion (as was present on the April 2022 MRI). The largest plaque is again noted to be i n the left frontoparietal white matter region and has slightly decreased in size. There are no new f oci of white matter signal abnormality. No abnormal focal enhancement in the brain nor abnormal meni ngeal enhancement. Incidentally noted is abnormal signal in the visualized upper cervical spinal cord and cervicomedulla ry junction partially included on the lower most aspect of the field of view of the sagittal T2 weigh stefani images. DWI: No areas of restricted diffusion to suggest acute ischemic event. SWI: No microhemorrhages evident. PITUITARY GLAND: No mass nor parasellar abnormality. No obvious abnormality in the cavernous sinuses. FLOW VOIDS: The expected flow void are noted. No evidence of obvious aneurysm nor obvious vascular ma lformation. PARANASAL SINUSES: The visualized paranasal sinuses appear unremarkable. ORBITS: No obvious abnormal findings. IMPRESSION: 1. No new intracranial plaques. The previously described small enhancing plaque in the left parietal lobe region just above the corpus callosum has decreased in size and no longer exhibits enhancement. 2. There presently no enhancing lesions in the brain. 3. Abnormal signal noted in the cervical spinal cord DATA REPOSITORY:
[2023-04-28] MEDS: Normal Saline Flush 10 ML SYR IVP (07:35)
[2023-04-28] MEDS: Gadoterate meglumine 20 ML SYRINGE 19 ML IVP (07:36)
== END ==
PROVIDERS: PCP Nurse Practitioner Family; Visit Provider Psychiatry & Neurology Neurology
DX: G35 Multiple sclerosis (principal)
CPT/HCPCS: 70553

== ENCOUNTER 2023-06-17 05:09 | Outpatient (CLI) | payer OTHER, SELFPAY ==
[2023-06-17 08:08] LABS: Hemoglobin A1C 5.5 % (<5.7)
[2023-06-17 08:16] LABS: ALT 30 U/L (14-59); AST 12 U/L (15-37); Albumin 3.9 g/dL (3.4-5.0); Alkaline Phosphatase 96 U/L (46-116); Anion Gap 11.5 mmol/L (3-11); BUN 14 mg/dL (7-18); Bilirubin, Total 0.3 mg/dL (0.2-1.0); CO2 24.5 mmol/L (21.0-32.0); CREATININE 0.7 mg/dL (0.55-1.02); Calcium 8.9 mg/dL (8.5-10.1); Calculated LDL 97 mg/dL (<100); Chloride 111 mmol/L (98-107); Cholesterol 171 mg/dL (<200); Glucose 106 mg/dL (74-106); HDL Cholesterol 66 mg/dL (40-60); Potassium 3.9 mmol/L (3.5-5.1); Sodium 147 mmol/L (136-145); Total Protein 6.5 g/dL (6.4-8.2); Triglyceride 43 mg/dL (<150)
== END 2023-06-17 05:10 | disposition home or self-care (01) ==
PROVIDERS: PCP Nurse Practitioner Family; Visit Provider Nurse Practitioner Family
DX: Z79.1 Long term (current) use of non-steroidal anti-inflammatories (NSAID) (principal); Z13.220 Encounter for screening for lipoid disorders; Z13.1 Encounter for screening for diabetes mellitus
CPT/HCPCS: 36415; 80053; 80061; 83036

== ENCOUNTER → 2023-09-09 01:03 | Outpatient (CLI) | payer OTHER, SELFPAY ==
--- NOTE | 2023-09-09 08:00 | DI.MRI_ITS ---
Exam(s) MR LUMBAR SPINE WO EXAM: MR LUMBAR SPINE WO CLINICAL HISTORY: bilateral sciatica symptoms, claudication, low back pain, I73.9, M54.30,. TECHNIQUE: Multiplanar multisequence MRI of the Lumbar spine was performed. COMPARISON: CR XR SHOULDER RT COMPLETE 2+V from 08/02/2021 MR MR THORACIC SPINE WO/W from 12/10/2021 FINDINGS: Bones: The last intervertebral disc space is designated the L5/S1 level for the numbering purpose of this ex amination. The vertebral body heights are well maintained. Alignment: Unremarkable. The marrow signal characteristics are unremarkable. Hemangioma L1. Cord: The conus tip ends at the T12 level. It is of normal size and signal intensity. T12-L1: No focal disc herniation is present. No central spinal canal stenosis.No neural foraminal st enosis. L1-2: No focal disc herniation is present. No central spinal canal stenosis.No neural foraminal sten osis. L2-3: No focal disc herniation is present. No central spinal canal stenosis.No neural foraminal lindy nosis. L3-4: No focal disc herniation is present. No central spinal canal stenosis.No neural foraminal lindy nosis. L4-5: Partial disc desiccation. Minimal disc bulging. Small central annular tear. Mild facet deg enerative changes. No central spinal canal stenosis.No neural foraminal stenosis. L5-S1: No focal disc herniation is present. No central spinal canal stenosis.No neural foraminal st enosis. The visualized SI joints and sacrum are unremarkable. Soft tissues: The paraspinal soft tissues are unremarkable. IMPRESSION: Small central annular tear of the L4-5 disc and minimal overall disc bulging. No evidence of signifi cant spinal stenosis or neuroforaminal narrowing. DATA REPOSITORY:
== END ==
PROVIDERS: PCP Nurse Practitioner Family; Visit Provider Psychiatry & Neurology Neurology
DX: I73.9 Peripheral vascular disease, unspecified (principal); M54.30 Sciatica, unspecified side; M54.50 Low back pain, unspecified; M51.A4 Intervertebral annulus fibrosus defect, small, lumbosacral region
CPT/HCPCS: 72148

== ENCOUNTER 2023-09-22 02:23 | Outpatient (RCR) | payer OTHER, SELFPAY ==
[2023-09-22] VITALS (8 sets, daily range): BP systolic 108–136; BP diastolic 61–84; PULSE 52–77; RESP 16–18; TEMP 36.3–36.5; O2SAT 95–98
[2023-09-22] MEDS: Acetaminophen 325 MG TAB 650 MG PO (08:26)
[2023-09-22] MEDS: Normal Saline Flush 10 ML SYR IVP (08:26)
[2023-09-22] MEDS: methylPREDNISolone SUCC 125 MG VIAL IVP (08:42)
[2023-09-22] MEDS: diphenhydrAMINE 50 MG/ML VIAL IVP (08:42)
[2023-09-22 08:58] LABS: Abs Immature Grans 0.03 10^3/uL (0.0-0.06); Absolute Basophil Count 0.06 10^3/uL (0.0-0.2); Absolute Eosinophil Count 0.39 10^3/uL (0.0-0.7); Absolute Lymphocyte Count 1.07 10^3/uL (1.2-3.4); Absolute Monocyte Count 0.69 10^3/uL (0.1-0.8); Absolute Neutrophil Count 4.79 10^3/uL (1.2-6.7); Basophils % 0.9 %; Eosinophils % 5.5 %; HCT 46.1 % (36.0-46.0); HGB 15.3 g/dL (11.2-15.7); Immature Grans % 0.4 %; Lymphocytes % 15.2 %; MCH 28.2 pg (27.0-33.0); MCHC 33.2 % (32.0-36.0); MCV 85 fL (80-95); MPV 10.4 fL (8.0-11.0); Monocytes % 9.8 %; Neutrophils % 68.2 %; Platelet Count 279 10^3/uL (130-400); RBC 5.42 10^6/uL (3.93-5.22); RDW 13.1 % (11.7-14.6); RDW-SD 40.5 fL; WBC 7.03 10^3/uL (4.4-10.8)
[2023-09-22] MEDS: OCRELIZUMAB 600 MG in Normal Saline 500 ML 40 MG IVPB (09:12)
[2023-09-22 09:35] LABS: ALT 29 U/L (14-59); AST 12 U/L (15-37); Albumin 4.1 g/dL (3.4-5.0); Alkaline Phosphatase 101 U/L (46-116); Anion Gap 11.6 mmol/L (3-11); BUN 17 mg/dL (7-18); CO2 22.4 mmol/L (21.0-32.0); CREATININE 0.7 mg/dL (0.55-1.02); Calcium 9.2 mg/dL (8.5-10.1); Chloride 110 mmol/L (98-107); Glucose 96 mg/dL (74-106); Sodium 144 mmol/L (136-145); Total Protein 7.2 g/dL (6.4-8.2)
[2023-09-23 09:51] LABS: IgA 115 mg/dL (85-499); IgG 405 mg/dL (610-1616); IgM 49 mg/dL (35-242)
[2023-09-23 13:50] LABS: CD19 <1 % (6-24); CD20 <1 % (6-24)
== END 2023-10-10 23:59 | disposition home or self-care (01) ==
LOC: INF 02:23
PROVIDERS: PCP Nurse Practitioner Family; Visit Provider Psychiatry & Neurology Neurology
DX: G35 Multiple sclerosis (principal)
CPT/HCPCS: 36415; 80053; 82784; 88184; 88185; 96365; 96366; 96374; 96375; 85025; J1200; J2350; J2919

== ENCOUNTER 2023-12-02 07:33 | Outpatient (CLI) | payer OTHER, SELFPAY ==
[2023-12-02 07:38] VITALS: BP 137/78; PULSE 55; RESP 20; TEMP 36.5; O2SAT 99
[2023-12-02 08:08] VITALS: O2SAT 95
[2023-12-02 08:10] VITALS: PULSE 64; RESP 14; O2SAT 97
[2023-12-02 08:12] VITALS: BP 123/64; PULSE 55; PULSE 56; RESP 15; O2SAT 97
[2023-12-02 08:16] VITALS: BP 122/91; PULSE 51; PULSE 59; RESP 17; O2SAT 97
[2023-12-02] MEDS: Omnipaque 240 MG/ML 50 ML BTL IJ (08:20)
--- NOTE | 2023-12-02 08:20 | PDOC.PAIN ---
Date of service: 12/02/23 Time of Service: 08:20 Pain Managment Procedure Note Procedure Note Procedure Note: PROCEDURE NOTE LUMBAR EPIDURAL STEROID INJECTION Date of Service: December 02, 2023 Patient:Linsey Guaman? Provider: Doyle Benz DO, MPH Linsey Guevara has been referred to the [facility] for a lumbar epidural steroid injection. Pre-operative diagnosis: Lumbosacral Radiculopathy ICD-10 M54.16 Post-operative diagnosis: Same Pre-Procedure Pain: VAS= 6 /10 Comments: I previously evaluated her in the clinic. Her symptoms are unchanged. Linsey was interviewed and the medical record was reviewed.? There were no medical, pharmacologic, radiographic or other structural contraindications to attempting fluoroscopically guided Lumbar epidural steroid injection.? Risks, potential side effects, indications, and potential benefits of the procedure were reviewed with Linsey.? Questions and concerns were addressed.? After it was clear that Linsey was fully informed about the procedure, the printed consent form was signed by the patient and myself.? Linsey was placed in the prone position on the fluoroscopy table and automated blood pressure cuff and pulse oximeter applied. The skin entry point for entering/approaching the epidural space for the lumbar epidural steroid injection was marked. Following thorough chlorhexadine preparation of the skin and draping and 1% lidocaine infiltration of the skin entry point and subcutaneous tissues, an 18 gauge Touhy needle was placed and advanced under fluoroscopic guidance and with loss of resistance technique into the L5-S1 epidural space. Needle tip placement and depth were aided and confirmed by fluoroscopy. There was no paresthesia or return of blood or CSF through the needle. 1 mls of Omnipaque 240 was injected with clear epidural spread confirmed with fluoroscopy. 80 mg of Depo-Medrol was? injected. This was followed by 1 ml of preservative-free normal saline to flush the steroid out of the needle. There was no unusual discomfort expressed by Linsey. The needle was withdrawn without difficulty. (49 mls of Omnipaque was wasted) Linsey was observed and was without hemodynamic, neurologic, or allergic reactions.? Fluoroscopic images were digitally archived. Linsey's vital signs were stable throughout the procedure and were as recorded in nursing records. Follow up plans and appointments were discussed with Linsey. Post procedure instruction was given as documented in nursing records and having met discharge criteria Linsey was discharged from the [facility]. COMMENTS: No apparent complications. Post-procedure pain: VAS= 0/10. Linsey to contact [facility] as needed. If at least 50% improvement in pain and/or function for at least 3 months is achieved, this procedure can be repeated. I personally performed this entire procedure. DOYLE BENZ DO, MPH ABPMR-subspecialty board certification in Pain Medicine [facility]
[2023-12-02] MEDS: Epidural Tray 1 EACH MC (08:21)
[2023-12-02] MEDS: methylPREDNISolone ACETATE 80 MG/ML VIAL IJ (08:21)
--- NOTE | 2023-12-02 08:22 | DI.RAD_ITS ---
Exam(s) XR PAIN CLINIC LUMBAR SP 2V EXAM: XR PAIN CLINIC LUMBAR SP 2V CLINICAL HISTORY: DX: Lumbar Radiculopathy TECHNIQUE: 2D and realtime digital imaging was performed. CONTRAST MATERIAL: Refer to procedure report. COMPARISON: No exams were available for comparison FINDINGS: Fluoroscopy was provided for Dr. Martel during the performance of a lumbar epidural steroid injection. Please refer to the procedure report for complete details. Ka,r=10.9 mGy IMPRESSION: RADIATION DOSE DELIVERED: 0.0 0.0 0
== END 2023-12-02 07:34 | disposition home or self-care (01) ==
LOC: PC 07:34
PROVIDERS: PCP Nurse Practitioner Family; Visit Provider Preventive Medicine Occupational Medicine
DX: M54.16 Radiculopathy, lumbar region (principal)
CPT/HCPCS: 62323; 72100; J1010; Q9967

== ENCOUNTER 2024-03-09 02:58 | Outpatient (CLI) | payer OTHER, SELFPAY ==
--- NOTE | 2024-03-09 08:25 | DI.RAD_ITS ---
Exam(s) XR HIP PELVIS ADULT BL EXAM: XR HIP PELVIS ADULT BL CLINICAL HISTORY: bilateral hip pain,m25.551,m25.552. TECHNIQUE: 2D digital imaging was performed of the pelvis and bilateral hips. Three images were obt ained. AP pelvis and lateral views of both hips were obtained. COMPARISON: No exams were available for comparison FINDINGS: BONES: No acute fracture is present. No bony destructive lesion is seen. JOINTS: No dislocation present. The hip joints are well maintained. The sacroiliac joints and symphy sis pubis are unremarkable. SOFT TISSUE: Normal. Phleboliths are seen in the pelvis. IMPRESSION: Unremarkable radiographs of bilat hips. Unremarkable radiographs of the pelvis DATA REPOSITORY: RADIATION DOSE DELIVERED:
== END 2024-03-09 03:18 ==
LOC: DI 02:58
PROVIDERS: PCP Nurse Practitioner Family; Visit Provider Psychiatry & Neurology Neurology
DX: M25.551 Pain in right hip (principal); M25.552 Pain in left hip
CPT/HCPCS: 73521

== ENCOUNTER 2024-03-29 04:25 | Outpatient (RCR) | payer OTHER, SELFPAY ==
[2024-03-29] MEDS: methylPREDNISolone SUCC 125 MG VIAL IVP (09:03)
[2024-03-29] MEDS: Normal Saline Flush 10 ML SYR IVP (09:03)
[2024-03-29] MEDS: diphenhydrAMINE 50 MG/ML VIAL IVP (09:03)
[2024-03-29] MEDS: Acetaminophen 325 MG TAB 650 MG PO (09:04)
[2024-03-29] MEDS: OCRELIZUMAB 600 MG in Normal Saline 500 ML 100 MG IVPB (09:11)
[2024-03-29 09:14] VITALS: BP 123/74; PULSE 59; RESP 18; TEMP 36.4; O2SAT 96
[2024-03-29 09:18] LABS: Abs Immature Grans 0.01 10^3/uL (0.0-0.06); Absolute Basophil Count 0.03 10^3/uL (0.0-0.2); Absolute Eosinophil Count 0.31 10^3/uL (0.0-0.7); Absolute Lymphocyte Count 0.86 10^3/uL (1.2-3.4); Absolute Neutrophil Count 3.55 10^3/uL (1.2-6.7); Basophils % 0.5 %; Eosinophils % 5.7 %; HCT 44.6 % (36.0-46.0); HGB 14.7 g/dL (11.2-15.7); Immature Grans % 0.2 %; Lymphocytes % 15.8 %; MCH 28.4 pg (27.0-33.0); MCV 86 fL (80-95); MPV 10.3 fL (8.0-11.0); Monocytes % 12.8 %; Platelet Count 282 10^3/uL (130-400); RBC 5.18 10^6/uL (3.93-5.22); RDW 12.8 % (11.7-14.6); RDW-SD 40.1 fL; WBC 5.46 10^3/uL (4.4-10.8)
[2024-03-29 09:35] VITALS: BP 111/77; PULSE 54; RESP 17; TEMP 36.8; O2SAT 98
[2024-03-29 09:42] LABS: ALT 37 U/L (14-59); AST 16 U/L (15-37); Albumin 4.1 g/dL (3.4-5.0); Alkaline Phosphatase 108 U/L (46-116); Anion Gap 8.2 mmol/L (3-11); BUN 18 mg/dL (7-18); Bilirubin, Total 0.33 mg/dL (0.2-1.0); CO2 24.8 mmol/L (21.0-32.0); CREATININE 0.7 mg/dL (0.55-1.02); Calcium 9.5 mg/dL (8.5-10.1); Chloride 111 mmol/L (98-107); Estimated GFR 108.62 (mL/min/1.73m2); Glucose 99 mg/dL (74-106); Potassium 3.8 mmol/L (3.5-5.1); Sodium 144 mmol/L (136-145); Total Protein 7.2 g/dL (6.4-8.2)
[2024-03-29 10:07] VITALS: BP 116/77; PULSE 53; RESP 17; TEMP 36.7; O2SAT 100
[2024-03-29 11:07] VITALS: BP 127/80; PULSE 50; RESP 17; TEMP 36.5; O2SAT 98
[2024-03-29 11:32] VITALS: BP 125/70; PULSE 57; RESP 18; TEMP 36.6; O2SAT 100
[2024-03-30 10:50] LABS: IgA 113 mg/dL (85-499); IgG 356 mg/dL (610-1616); IgM 47 mg/dL (35-242)
[2024-03-30 14:39] LABS: CD19 <1 % (6-24); CD20 <1 % (6-24)
== END 2024-04-08 23:59 | disposition home or self-care (01) ==
LOC: INF 04:25
PROVIDERS: PCP Nurse Practitioner Family; Visit Provider Psychiatry & Neurology Neurology
DX: G35 Multiple sclerosis (principal)
CPT/HCPCS: 80053; 82784; 88184; 88185; 96365; 96366; 96374; 85025; J1200; J2350; J2919

== ENCOUNTER 2024-04-12 02:29 | Outpatient (CLI) | payer OTHER, SELFPAY ==
[2024-03-29 09:14] VITALS: BP 123/74; PULSE 59; RESP 18; TEMP 36.4; O2SAT 96
[2024-03-29 11:11] VITALS: BP 127/80; PULSE 50; RESP 16; TEMP 36.5; O2SAT 96
[2024-04-12] MEDS: Normal Saline Flush 10 ML SYR IVP (12:19)
[2024-04-12] MEDS: Gadoterate meglumine 20 ML SYRINGE IVP (12:19)
--- NOTE | 2024-04-12 12:45 | DI.MRI_ITS ---
Exam(s) MR BRAIN WO/W EXAM: MR BRAIN WO/W CLINICAL HISTORY: MS G35, ON OCREVUS, EVAL FOR STABILITY TECHNIQUE: Multiplanar multisequence MRI of the brain was performed. Both noninfused and contrast i nfused sequences were performed. IV Contrast injected was 19 cc Dotarem. COMPARISON: MR MR BRAIN WO/W from 04/28/2023 FINDINGS: CEREBRAL PARENCHYMA: No evidence of intracranial hemorrhage, new mass effect nor shift of midline str ucture. No extraaxial fluid collections. Ventricles are not enlarged nor shifted. There is no significant focal signal abnormality in the cerebellar hemispheres nor within the john, m idbrain, and thalami. The previously described foci FLAIR bright signal abnormality are unchanged from MRI scan of April 28 and there are no new additional plaques evident. There is no abnormal enhancement.. There are no ring enhancing lesions in the brain nor abnormal meningeal enhancement. DWI: No areas of restricted diffusion to suggest acute ischemic event. SWI: No microhemorrhages evident. There are no ring enhancing lesions in the brain. There is no abnormal meningeal enhancement. PITUITARY GLAND: No mass nor parasellar abnormality. No obvious abnormality in the cavernous sinuses. FLOW VOIDS: The expected flow void are noted. No evidence of obvious aneurysm nor obvious vascular ma lformation. PARANASAL SINUSES: The visualized paranasal sinuses appear unremarkable. IMPRESSION: 1. Findings are stable/unchanged from prior MRI scan of April 2023, 1 year ago. 2. No abnormal enhancing intracranial findings. There are no ring enhancing lesions in the brain and there is no abnormal meningeal enhancement. No plaque enhancement. DATA REPOSITORY:
== END 2024-04-12 02:49 ==
LOC: DI 02:29
PROVIDERS: PCP Nurse Practitioner Family; Visit Provider Psychiatry & Neurology Neurology
DX: G35 Multiple sclerosis (principal)
CPT/HCPCS: 70553

== ENCOUNTER 2024-06-09 07:46 | Outpatient (CLI) | payer OTHER, SELFPAY ==
[2024-06-09 08:06] VITALS: BP 117/56; PULSE 56; RESP 18; TEMP 36.5; O2SAT 97
[2024-06-09 08:50] VITALS: PULSE 51; RESP 15; O2SAT 97
[2024-06-09 08:51] VITALS: BP 121/45; PULSE 51; PULSE 53; RESP 18; O2SAT 97
--- NOTE | 2024-06-09 09:00 | DI.RAD_ITS ---
Exam(s) XR PAIN CLINIC LUMBAR SP 2V EXAM: XR PAIN CLINIC LUMBAR SP 2V CLINICAL HISTORY: DX: Lumbar Radiculopathy TECHNIQUE: 2D and realtime digital imaging was performed. CONTRAST MATERIAL: Refer to procedure report. COMPARISON: No exams were available for comparison FINDINGS: Fluoroscopy was provided for Dr. Martel during the performance of a lumbar epidural steroid injection. Please refer to the procedure report for complete details. Ka,r=9.76 mGy IMPRESSION: RADIATION DOSE DELIVERED: 0.0 0.0 0
[2024-06-09] MEDS: Omnipaque 240 MG/ML 50 ML BTL IJ (09:16)
[2024-06-09] MEDS: Epidural Tray 1 EACH MC (09:17)
[2024-06-09] MEDS: methylPREDNISolone ACETATE 80 MG/ML VIAL IJ (09:17)
--- NOTE | 2024-06-10 08:55 | PDOC.PAIN ---
Date of service: 06/09/24 Time of Service: 09:00 Pain Managment Procedure Note Procedure Note Procedure Note: PROCEDURE NOTE LUMBAR EPIDURAL STEROID INJECTION Date of Service: June 09, 2024 Patient:Linsey Guaman? Provider: Doyle Benz DO, MPH Linsey Guevara has been referred to the [facility] for a lumbar epidural steroid injection. Pre-operative diagnosis: Lumbosacral Radiculopathy ICD-10 M54.16 Post-operative diagnosis: Same Pre-Procedure Pain: VAS= 7 /10 Comments: Excellent relief with her LORRAINEI from 12/02/23 with >50% pain relief for >4 months. Linsey was interviewed and the medical record was reviewed.? There were no medical, pharmacologic, radiographic or other structural contraindications to attempting fluoroscopically guided Lumbar epidural steroid injection.? Risks, potential side effects, indications, and potential benefits of the procedure were reviewed with Linsey.? Questions and concerns were addressed.? After it was clear that Linsey was fully informed about the procedure, the printed consent form was signed by the patient and myself.? Linsey was placed in the prone position on the fluoroscopy table and automated blood pressure cuff and pulse oximeter applied. The skin entry point for entering/approaching the epidural space for the lumbar epidural steroid injection was marked. Following thorough chlorhexadine preparation of the skin and draping and 1% lidocaine infiltration of the skin entry point and subcutaneous tissues, an 18 gauge Touhy needle was placed and advanced under fluoroscopic guidance and with loss of resistance technique into the L5-S1 epidural space. Needle tip placement and depth were aided and confirmed by fluoroscopy. There was no paresthesia or return of blood or CSF through the needle. 1 mls of Omnipaque 240 was injected with clear epidural spread confirmed with fluoroscopy. 80 mg of Depo-Medrol was? injected. This was followed by 1 ml of preservative-free normal saline to flush the steroid out of the needle. There was no unusual discomfort expressed by Linsey. The needle was withdrawn without difficulty. (49 mls of Omnipaque was wasted) Linsey was observed and was without hemodynamic, neurologic, or allergic reactions.? Fluoroscopic images were digitally archived. Linsey's vital signs were stable throughout the procedure and were as recorded in nursing records. Follow up plans and appointments were discussed with Linsey. Post procedure instruction was given as documented in nursing records and having met discharge criteria Linsey was discharged from the [facility]. COMMENTS: No apparent complications. Post-procedure pain: VAS= 2/10. Linsey to contact [facility] as needed. If at least 50% improvement in pain and/or function for at least 3 months is achieved, this procedure can be repeated. I personally performed this entire procedure. DOYLE BENZ DO, MPH ABPMR-subspecialty board certification in Pain Medicine [facility] Coding Conscious Sedation used for procedure: No CPT Codes: Inj Spine L/S w/Imaging - 27703 ([id number] ~G) Additional Codes: Date of Service (03230) Date of service: 06/09/24
== END 2024-06-09 07:47 | disposition home or self-care (01) ==
LOC: PC 07:47
PROVIDERS: PCP Nurse Practitioner Family; Visit Provider Preventive Medicine Occupational Medicine
DX: M54.16 Radiculopathy, lumbar region (principal)
CPT/HCPCS: 62323; 72100; J1010; Q9967

== ENCOUNTER 2024-09-30 00:12 | Outpatient (CLI) | payer BC, SELFPAY ==
[2024-09-30 08:49] VITALS: BP 144/83; PULSE 76; RESP 20; TEMP 35.9; O2SAT 98
[2024-09-30] MEDS: Acetaminophen 325 MG TAB 650 MG PO (08:55)
[2024-09-30] MEDS: diphenhydrAMINE 50 MG/ML VIAL IVP (08:55)
[2024-09-30] MEDS: Normal Saline Flush 10 ML SYR IVP (08:55)
[2024-09-30] MEDS: methylPREDNISolone SUCC 125 MG VIAL IVP (08:55)
[2024-09-30] MEDS: OCRELIZUMAB 600 MG in Normal Saline 500 ML 100 MG IVPB (09:09)
[2024-09-30 09:30] LABS: Abs Immature Grans 0.02 10^3/uL (0.0-0.06); HCT 47.7 % (36.0-46.0); HGB 15.5 g/dL (11.2-15.7); Immature Grans % 0.2 %; MCH 27.3 pg (27.0-33.0); MCHC 32.5 % (32.0-36.0); MCV 84 fL (80-95); MPV 10.8 fL (8.0-11.0); Platelet Count 289 10^3/uL (130-400); RBC 5.67 10^6/uL (3.93-5.22); RDW 13.1 % (11.7-14.6); RDW-SD 40.4 fL; WBC 8.42 10^3/uL (4.4-10.8)
[2024-09-30 09:34] VITALS: BP 119/77; PULSE 52; RESP 18; TEMP 35.8; O2SAT 99
[2024-09-30 09:48] LABS: ALT 51 U/L (14-59); AST 22 U/L (15-37); Albumin 4.2 g/dL (3.4-5.0); Alkaline Phosphatase 117 U/L (46-116); Anion Gap 8.6 mmol/L (3-11); BUN 15 mg/dL (7-18); Bilirubin, Total 0.4 mg/dL (0.2-1.0); CO2 29.4 mmol/L (21.0-32.0); Calcium 9.4 mg/dL (8.5-10.1); Chloride 107 mmol/L (98-107); Estimated GFR 108.62 (mL/min/1.73m2); Glucose 84 mg/dL (74-106); Potassium 3.6 mmol/L (3.5-5.1); Sodium 145 mmol/L (136-145); Total Protein 7.4 g/dL (6.4-8.2)
[2024-09-30 10:05] VITALS: BP 125/82; PULSE 61; RESP 18; TEMP 35.4; O2SAT 98
[2024-09-30 11:05] VITALS: BP 126/82; PULSE 77; RESP 20; TEMP 36.2; O2SAT 97
[2024-10-03 16:12] LABS: CD19 <1 % (6-24); CD20 <1 % (6-24)
== END 2024-09-30 00:13 | disposition home or self-care (01) ==
LOC: INF 00:13
PROVIDERS: PCP Nurse Practitioner Family; Visit Provider Psychiatry & Neurology Neurology
DX: G35 Multiple sclerosis (principal)
CPT/HCPCS: 36415; 80053; 82784; 88184; 88185; 96365; 96366; 96374; 96375; 85025; J1200; J2350; J2919

== ENCOUNTER 2024-12-07 10:33 | Day surgery (SDC) | payer BC, SELFPAY ==
[2024-12-07 10:40] VITALS: BP 127/51; PULSE 72; RESP 18; TEMP 35.4; O2SAT 98
[2024-12-07] MEDS: Lactated Ringers 1,000 ML 80 ML IV (11:11)
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
[2024-12-07 12:03] VITALS: BMI 36.6
[2024-12-07 12:43] VITALS: BP 120/69; PULSE 63; RESP 16; TEMP 36; O2SAT 99
--- NOTE | 2024-12-07 12:43 | W.PM.DSUDISC ---
Date of service: 12/07/24 Discharge Plan Disposition Patient Disposition: Home Condition: Good Discharge Details Reason For Visit: Screening colonoscopy Attending Provider: Maricel Mart Primary Care Provider: Woo Dumont Home Meds and New Rx's Prescriptions: Continued Ocrevus 30 mg/mL solution 600 mg IV [id number] cholecalciferol (vitamin D3) 50 mcg (2,000 unit) capsule 50 mcg PO DAILY sertraline 50 mg tablet 50 mg PO DAILY Qty: 90 3RF omeprazole 20 mg capsule,delayed release(DR/EC) 20 mg PO BID Qty: 180 3RF baclofen 20 mg tablet 20 mg PO TID Qty: 270 3RF mirabegron 50 mg tablet extended release 24 hr 50 mg PO DAILY Qty: 90 3RF pregabalin 300 mg capsule 300 mg PO BID Qty: 180 3RF medroxyprogesterone [Depo-Provera] 150 mg/mL syringe 150 mg IM Q12W Qty: 1 6RF sertraline 25 mg tablet 25 mg PO DAILY Qty: 90 3RF meloxicam 15 mg tablet 15 mg PO DAILY Qty: 90 3RF ziprasidone HCl 40 mg capsule 40 mg PO QAM Qty: 90 0RF Rx Instructions: give with food (meal/snack) ziprasidone HCl 20 mg capsule 20 mg PO QPM Qty: 90 2RF Rx Instructions: give with food (meal/snack) Discontinued bisacodyl [Dulcolax (bisacodyl)] 5 mg tablet,delayed release (DR/EC) 5 mg PO ONCE Qty: 4 0RF Rx Instructions: Take per colonoscopy instructions provided by ordering providers office polyethylene glycol 3350 17 gram/dose powder 17 g PO ONCE Qty: 238 0RF Rx Instructions: Take per colonoscopy instructions provided by ordering providers office Discharge Instructions Additional Instructions: Your colonoscopy went well today. Your entire colon appeared normal. The recommendation would be to have a repeat colonoscopy in 10 yrs. Please contact the general surgery clinic if any questions or concerns. 1. If tolerated, consume a soft, low fiber diet for 1-2 days. 2[address] Do not drive, drink alcohol, operate machinery, make critical decisions, or do activities that require coordination or balance for 24 hours. 3. Because air was put into your colon during the procedure, expelling air from your rectum (passing gas or farting) is normal. 4. You may not have a bowel movement for 1-3 days because of the colonoscopy prep. This is normal. 5. Go directly to the emergency room if you notice any of the following: Develop chills (warm to touch), or if you have a thermometer and your temperature is above 101 Difficulty breathing or difficultly swallowing Persistent vomiting Severe abdominal pain, other than gas cramps Severe chest pain Black, tarry stools Any bleeding – exceeding one tablespoon 6. Call your physician if the site where your intravenous was started becomes red, swollen, painful, and warm to touch. 7. Your physician has reviewed your pre-procedure medications. Please continue to take those medications as previously ordered. You will be given specific information/education regarding any changes to your medications before leaving. Stand Alone Forms: Anesthesia Discharge InstAlycia Worthy (DSU) Activity:: Activity as Tolerated Diet:: As Tolerated Discharge Orders Discharge Orders: Discharge Order (Routine); Ordered 12/07/24 Ordered By: Maricel Mart
--- NOTE | 2024-12-07 12:47 | W.COLOREPORT ---
Date of service: 12/07/24 Time of Service: 12:48 Colonoscopy Report Date of procedure: 12/07/24 Pre-op diagnosis general: Screening colonoscopy Post-op diagnosis procedure note: same Procedure: Colonoscopy Surgeon: Maricel Mart Anesthesia Type: General:No Airway Estimated blood loss (mL): 1 Pathology: none sent Complications: None Disposition: PACU Indications: Patient is a 44 yo female who presents for a screening colonoscopy. She denies any changes in bowel habits or family history of colon cancer. Prep: Miralax/Dulcolax Procedure Start Time: 12:17 Procedure End Time: 12:37 Retraction Time: 13 Findings: Normal colonoscopy. Procedure Description: Informed consent was obtained. The patient was taken to the endoscopy suite and placed in the left lateral decubitus position. After adequate intravenous sedation, digital rectal exam was performed, which was normal. A colonoscope was inserted into the rectum and easily negotiated to the cecum. The ileocecal valve and appendiceal orifice were identified. The entire colonic mucosa was then carefully circumferentially inspected upon slow withdrawal of the scope. The entire colon appeared normal. Retroflexion in the rectum was unremarkable. The patient tolerated the procedure well with no complications. Postoperatively, the patient was transferred to the recovery room in stable condition. Buckhorn Bowel Prep Buckhorn Bowel Prep Right Colon: 2 Left Colon: 3 Transverse Colon: 3 Total Score: 8
[2024-12-07 13:04] VITALS: BP 120/70; PULSE 56; RESP 16; TEMP 36.5; O2SAT 99
--- NOTE | 2024-12-07 13:04 | W.ANESPOSTOP ---
Postoperative Evaluation Date, Time and Location Date Performed: 12/07/24 Time Performed: 12:45 Patient Location: Day Surgery Unit Vital Signs Most Recent Imported Vital Signs: Most Recent Vital Signs Temp Pulse Resp BP Pulse Ox 36 C L 63 16 120/69 99 12/07/24 12:43 12/07/24 12:43 12/07/24 12:43 12/07/24 12:43 12/07/24 12:43 Pain Score Most Recent Pain Score: Most Recent Pain Score Pain Level 0 12/07/24 12:43 Assessment Mental Status: Awake (Alert & Oriented to Patient Baseline) Airway and Respiratory Function: Patent airway with normal (patient baseline) respiratory exam Cardiovascular Function: Hemodynamically Stable Hydration Status: Adequately Hydrated Nausea & Vomiting: No Nausea or Vomiting Pain: Pt. Denies Any Pain Peripheral Nerve Block: Patient did not receive a nerve block
== END 2024-12-07 13:15 | disposition home or self-care (01) ==
PROVIDERS: PCP Nurse Practitioner Family; Visit Provider Student in an Organized Health Care Education/Training Program
PROC: 0DJD8ZZ Inspection of Lower Intestinal Tract, Via Natural or Artificial Opening Endoscopic (ICD-10-PCS; CPT 45378; principal; 2024-12-07 13:30)
DX: Z12.11 Encounter for screening for malignant neoplasm of colon (principal)
CPT/HCPCS: 45378; 81025; J2704

== ENCOUNTER 2024-12-21 11:49 | Outpatient (CLI) | payer BC, SELFPAY ==
--- NOTE | 2024-12-21 06:00 | DI.RAD_ITS ---
Exam(s) XR PAIN CLINIC LUMBAR SP 2V EXAM: XR PAIN CLINIC LUMBAR SP 2V CLINICAL HISTORY: DX: Lumbar Radiculopathy. TECHNIQUE: Fluoroscopy was provided for the referring physician for guidance with performing pain clinic injection procedure. COMPARISON: No exams were available for comparison FINDINGS: Please see procedure note for details. Fluoro time: 15.6 seconds RADIATION DOSE DELIVERED: Ka,r=9.5 mGy
[2024-12-21 11:55] VITALS: BP 121/61; PULSE 78; RESP 20; TEMP 37; O2SAT 95
--- NOTE | 2024-12-21 12:27 | PDOC.PAIN ---
Date of service: 12/21/24 Time of Service: 12:27 Pain Managment Procedure Note Procedure Note Procedure Note: PROCEDURE NOTE LUMBAR EPIDURAL STEROID INJECTION Date of Service: December 21, 2024 Patient:Linsey Guaman? Provider: Doyle Benz DO, MPH Linsey Guevara has been referred to the [facility] for a lumbar epidural steroid injection. Pre-operative diagnosis: Lumbosacral Radiculopathy ICD-10 M54.16 Post-operative diagnosis: Same Pre-Procedure Pain: VAS= 7 /10 Comments: She had this procedure on 06/09/24 with >4 months of >50% pain relief. Her pain has mostly returned. Linsey was interviewed and the medical record was reviewed.? There were no medical, pharmacologic, radiographic or other structural contraindications to attempting fluoroscopically guided Lumbar epidural steroid injection.? Risks, potential side effects, indications, and potential benefits of the procedure were reviewed with Linsey.? Questions and concerns were addressed.? After it was clear that Linsey was fully informed about the procedure, the printed consent form was signed by the patient and myself.? Linsey was placed in the prone position on the fluoroscopy table and automated blood pressure cuff and pulse oximeter applied. The skin entry point for entering/approaching the epidural space for the lumbar epidural steroid injection was marked. Following thorough chlorhexadine preparation of the skin and draping and 1% lidocaine infiltration of the skin entry point and subcutaneous tissues, an 18 gauge Touhy needle was placed and advanced under fluoroscopic guidance and with loss of resistance technique into the L5-S1 epidural space. Needle tip placement and depth were aided and confirmed by fluoroscopy. There was no paresthesia or return of blood or CSF through the needle. 1 mls of Omnipaque 240 was injected with clear epidural spread confirmed with fluoroscopy. 80 mg of Depo-Medrol was? injected. This was followed by 1 ml of preservative-free normal saline to flush the steroid out of the needle. There was no unusual discomfort expressed by Linsey. The needle was withdrawn without difficulty. (49 mls of Omnipaque was wasted) Linsey was observed and was without hemodynamic, neurologic, or allergic reactions.? Fluoroscopic images were digitally archived. Linsey's vital signs were stable throughout the procedure and were as recorded in nursing records. Follow up plans and appointments were discussed with Linsey. Post procedure instruction was given as documented in nursing records and having met discharge criteria Linsey was discharged from the [facility]. COMMENTS: No apparent complications. Post-procedure pain: VAS= 3/10. Linsey to contact [facility] as needed. If at least 50% improvement in pain and/or function for at least 3 months is achieved, this procedure can be repeated. I personally performed this entire procedure. DOYLE BENZ DO, MPH ABPMR-subspecialty board certification in Pain Medicine [facility] Coding Conscious Sedation used for procedure: No CPT Codes: Inj Spine L/S w/Imaging - [id number] ([id number] ~G) Additional Codes: Date of Service () Diagnoses: Lumbar radiculopathy
[2024-12-21 12:30] VITALS: BP 125/84; PULSE 57; RESP 14; O2SAT 97
[2024-12-21] MEDS: Epidural Tray 1 EACH MC (12:31)
[2024-12-21] MEDS: Omnipaque 240 MG/ML 50 ML BTL IJ (12:31)
[2024-12-21] MEDS: methylPREDNISolone ACETATE 40 MG/ML VIAL IJ (12:32)
== END 2024-12-21 11:50 | disposition home or self-care (01) ==
LOC: PC 11:50
PROVIDERS: PCP Nurse Practitioner Family; Visit Provider Preventive Medicine Occupational Medicine
DX: M54.16 Radiculopathy, lumbar region (principal)
CPT/HCPCS: 62323; 72100; J1010; Q9967

== ENCOUNTER 2025-01-25 09:31 | Outpatient (REF) | payer BC, SELFPAY ==
--- NOTE | 2025-01-25 09:20 | PAPFT_PTH ---
PATIENT: Linsey Guevara LOC: [facility] U#:[id number] AGE/SX: 44/F ROOM: RE01/25/[address]: Lakshmi Soto NP : 1980 BED: DIS: 01/25/2025 SPEC #: [id number] RECD: 01/25/25 13:00 STATUS: MAE WILLIAM #: [id number] FÉLIX: 01/25/25 09:[address]: Lakshmi Soto NP DEPT: [facility] Cytology RECD BY: Destiny Tierney ENTERED: 01/25/25 13:00 SP TYPE: PAPFT OTHR DR: Woo Dumont NP Tissues: 1 - CX/ENDOCX FOR PAP SMEARS Procedures: PAP THIN PREP/[facility] Screening HPV DNA PROBE Comments: [id number] (HPV 16 & 18/45)
== END 2025-01-25 09:32 | disposition home or self-care (01) ==
LOC: LBN 09:31
PROVIDERS: PCP Nurse Practitioner Family; Visit Provider Nurse Practitioner Women's Health
DX: Z12.4 Encounter for screening for malignant neoplasm of cervix (principal)
CPT/HCPCS: 88142; 87624